=== PATIENT | male | born 1960 | race Two or more races ===

== ENCOUNTER 2023-12-26 14:07 | Outpatient (CLI) | payer OTHER | END 2023-12-26 14:15 | disposition home or self-care (01) | LOC: TOM 14:07 | PROVIDERS: ATTEND Orthopaedic Surgery | DX: M25.572 Pain in left ankle and joints of left foot (principal); M79.672 Pain in left foot ==

== ENCOUNTER → 2024-06-30 06:07 | Outpatient (CLI) | payer OTHER ==
[2024-06-30 07:06] LABS: HEMATOCRIT 40.3 % (39.0-48.0); HEMOGLOBIN 13.8 g/dL (13-16.00); MEAN CELL VOLUME 89.6 fL (80.0-100.00); MEAN CORPUSCULAR HEMOGLOBIN 30.8 pg (27.00-32.0); MEAN CORPUSCULAR HGB CONC 34.4 g/dl (32.0-36.0); PLATELET COUNT 190 K/uL (150-450); RED BLOOD COUNT 4.49 M/uL (4.00-6.00); RED CELL DISTRIBUTION WIDTH 13.9 % (11.5-14.5)
[2024-06-30 07:15] LABS: URINE APPEARANCE Clear; URINE BILIRRUBIN Negative (NEGATIVE); URINE BLOOD Negative; URINE COLOR Yellow; URINE GLUCOSE Negative (NEGATIVE); URINE KETONE Negative (NEGATIVE); URINE LEUKOCYTE Negative; URINE NITRATE Negative; URINE PROTEIN Trace (NEGATIVE); URINE UROBILINOGEN 0.2 E.U./dl
[2024-06-30 07:19] LABS: URINE EPITHELIAL CELLS 1.5 uL (0.0-38.8); URINE WBC 1.8 uL (0.0-23.2)
[2024-06-30 07:26] LABS: INR 1.04; PARTIAL THROMBOPLASTIN TIME 28.8 SECONDS (22.0-34.0); PROTHROMBIN TIME 11.3 SECONDS (9.0-11.5)
[2024-06-30 08:05] LABS: COL EPI 152 SECONDS (82-175)
[2024-06-30 08:18] LABS: ALBUMIN 3.7 gm/dL (3.4-5.0); BILIRUBIN TOTAL 1.27 mg/dL (0.3-1.2); CALCIUM 9.2 mg/dL (8.5-10.1); CREATININE SERUM 0.92 mg/dL (0.70-1.30); GFR 83.09; GLOBULINA 3.2 G/DL (2.4-3.5); POTASSIUM 4.56 mEq/L (3.5-5.1); TOTAL PROTEIN 6.9 gm/dL (6.4-8.2)
[2024-06-30 08:28] LABS: URINE RBC 1.9 uL (0.0-20.8)
== END | disposition home or self-care (01) ==
LOC: RAD 06:07
PROVIDERS: ATTEND Orthopaedic Surgery
DX: D64.9 Anemia, unspecified (principal); E88.89 Other specified metabolic disorders; D68.8 Other specified coagulation defects; N39.0 Urinary tract infection, site not specified; Z22.322 Carrier or suspected carrier of Methicillin resistant Staphylococcus aureus; E11.9 Type 2 diabetes mellitus without complications; I10 Essential (primary) hypertension; Z76.89 Persons encountering health services in other specified circumstances

== ENCOUNTER 2024-07-19 08:45 | Day surgery (SDC) | payer OTHER ==
[2024-07-19] MEDS ORDERED: CIPROFLOXACIN IN 5 % DEXTROSE 400 MG/200 ML PIGGYBAG IV ONE (13:30)
[2024-07-19] MEDS ORDERED: BUPIVACAINE HCL/PF 0.25% 30ML VIAL InF ONE (13:30)
[2024-07-19] MEDS ORDERED: MORPHINE SULFATE 4 MG/ML VIAL IV ONE ×2 (17:50→18:20)
== END 2024-07-19 19:50 | disposition home or self-care (01) ==
LOC: CIR.AMB 08:45
PROVIDERS: ATTEND Orthopaedic Surgery
DX: M19.072 Primary osteoarthritis, left ankle and foot (principal); I10 Essential (primary) hypertension
CPT/HCPCS: 28705; 20902; L8699

== ENCOUNTER 2024-11-25 11:43 | Outpatient (CLI) | payer OTHER | END 2024-11-25 11:50 | disposition home or self-care (01) | LOC: RAD 11:43 | PROVIDERS: ATTEND Orthopaedic Surgery | DX: Z98.1 Arthrodesis status (principal) ==

== ENCOUNTER 2025-07-21 12:01 | Outpatient (CLI) | payer OTHER | END 2025-07-21 12:08 | disposition home or self-care (01) | LOC: RAD 12:01 | PROVIDERS: ATTEND Orthopaedic Surgery | DX: Z98.1 Arthrodesis status (principal) ==